=== PATIENT | male | born 1970 | race African-American/Black ===

== ENCOUNTER 2022-06-07 09:00 | Outpatient (REF) | payer OTHER, SELFPAY ==
[2022-06-07 09:26] LABS: COVID-19 Test Positive (Negative); IDNOW Serial# 16C4AD1C
== END 2022-06-07 09:01 | disposition home or self-care (01) ==
LOC: HO.LAB 09:00
PROVIDERS: Visit Provider Internal Medicine
DX: Z20.822 Contact with and (suspected) exposure to COVID-19 (principal)
CPT/HCPCS: 87635; C9803

== ENCOUNTER 2024-03-02 09:53 | Outpatient (AMB) | payer OTHER, SELFPAY ==
--- NOTE | 2024-03-02 10:17 | MHC.PC.OV ---
Vital Signs 03/02/24 10:18 Height 5 ft 9 in Weight 197 lb BMI 29.1 BP 148/90 H Blood Pressure Location Lt brachial Position Sitting Pulse 82 Pulse Source Pulse Oximeter Pulse Oximetry (%) 97 Oxygen Delivery Method Room Air Intake Visit Reasons: Ovi Client Care Consultant Required: No Accompanied by: Self / Same As Patient Allergies No Known Allergies [No Known Allergies*] Allergy (Unverified 03/02/24 10:50) Medication List - Last Reconciled 03/02/24 by Carlito Burgos MD ergocalciferol (vitamin D2) 1,250 mcg PO QWEEK triamcinolone acetonide 0.1% 1 appl topical BID-TID triamcinolone acetonide 0.5% 1 appl topical BID Tobacco use date assessed: 03/02/24 Dental Screening Dental Screen Date: 03/02/24 Did you have a dental visit in the last 12 months?: No Did you have a dental problem in the last 6 months where you did not have access to dental care?: Yes Was dental information given to patient?: Patient has dentist HPI CREW CALLER-Suraj HPI Details Patient comes in today to reestablish care - he was a former patient of [facility] but he has not been back or seen in over 15 years (last recorded appt was sometime in 2005) Admits that he has not really seen a doctor or kept up with medical appointments over the years Patient states that he currently feels okay He denies any headaches or dizziness Denies any chest pains, no SOB No nausea/vomiting, no abdominal pain - currently has no Rx but he takes his 's antacid pills (cannot remember name of Rx) when needed with relief No change in bowel habits noted He denies any acute urinary symptoms States that he's had problems with eczema and a recurrent rash, especially over his chest area, for years and they tend to get worse in the summer when he sweats He was prescribed some Triamcinolone (ointment and cream both) over the years by someone at his workplace ([employer]) and states that they help clear them up when they break out - would like to get his Rx refilled at this time Adds that he has recently been dealing with some recurrent low back pain - thinks he has a pinched nerve over his lower back [facility] Medical History (Updated 03/02/24 @ 11:32 by Carlito Burgos MD) Alcohol use Atopic dermatitis Smoker Overweight (BMI 25.0-29.9) Pure hypercholesterolemia Vitamin D deficiency H. pylori duodenitis Duodenitis determined by biopsy Surgical History (Updated 03/02/24 @ 10:54 by Carlito Burgos MD) History of esophagogastroduodenoscopy (EGD) Family History Other Family history non-contributory Social History [facility] Patient Tobacco Use Status: Current everyday Tobacco user Cigarette Packs Per Day: 0.5 Cigarettes Per Day: 10 e-Cigarette/Vaping Use: Never Used service: No Current occupational status: employed Current occupation: Loaded at [employer] Cognitive needs: No Hearing needs: No Vision needs: No Questionnaire PHQ-9 Over the last 2 weeks, how often have you been bothered by any of the following problems? 1. Little interest or pleasure in doing things: not at all 2. Feeling down, depressed, or hopeless: not at all 3. Trouble falling or staying asleep, or sleeping too much: not at all 4. Feeling tired or having little energy: not at all 5. Poor appetite or overeating: not at all 6. Feeling bad about yourself - or that you are a failure or have let yourself or your family down: not at all 7. Trouble concentrating on things, such as reading the newspaper or watching television: not at all 8. Moving or speaking so slowly that other people could have noticed. Or the opposite - being so fidgety or restless that you have been moving around a lot more than usual: not at all 9. Thoughts that you would be better off or of hurting yourself in some way: not at all Total score: 0 Depression Screening Interpretation: Negative Depression Screening Done: Yes 19640 - PHQ-9 Billing: Yes Source: Developed by Drs. Behzad Saleem, Chanel Tavera, Pantera Byrd and colleagues, with an educational rebecca from [employer]. Thrive Questionnaire Date Thrive assessed: 04/12/24 I am a: Patient What is your living situation today?: I have a steady place to live Within the past 12 months, did the food you bought not last and you didn't have the money to get more?: Never true Within the past 12 months, did you worry whether your food would run out before you got money to buy more?: Never true Do you have trouble paying for medicines?: No Do you have trouble getting transportation to medical appointments?: No Do you have trouble paying your heating and electricity bill?: No Do you have trouble taking care of your child, family member or friend?: No Do you have trouble with day-to-day activities such as bathing, preparing meals, shopping, managing finances, etc.?: No Are you currently unemployed and looking for a job?: No Are you interested in more education?: No Please select the resources that you would like help with: None Currently or been in a relationship where the following occur: no concerns reported THRIVE Score: 0 AUDIT C Alcohol Use Questionnaire (AUDIT-C) 1. How often do you have a drink containing alcohol?: 4 or more times a week 2. How many drinks containing alcohol do you have on a typical day when you are drinking?: 3 or 4 3. How often do you have six or more drinks on one occasion?: Daily or almost daily Total Score: 9 Score Reviewed/Action Taken: Yes (is advised to start cutting back on his alcohol intake) SIERRA-7 AMB Questionnaire SIERRA-7 Date SIERRA - 7 assessed: 03/02/24 Feeling nervous, anxious, or on edge: 0 = Not at all Not being able to stop or control worryin = Not at all Worrying too much about different things: 0 = Not at all Trouble relaxin = Not at all Being so restless that it is hard to sit still: 0 = Not at all Becoming easily annoyed or irritable: 0 = Not at all Feeling afraid as if something awful might happen: 0 = Not at all Total SIERRA-7 score (0-4 normal; 5-9 mild; 10-14 moderate; 15-21 severe): 0 Source: Developed by Drs. Behzad Saleem, Chanel Tavera, Pantera Byrd and colleagues, with an educational rebecca from [employer]. SIERRA-7 Assessment Billing SIERRA-7 Assessment Tool: SIERRA-7 Assessment 27118 Review of Systems Const Denies chills, Denies fatigue, Denies fever(s), Denies headache(s), Denies malaise and Denies weakness Eyes Denies blurry vision, Denies change in vision, Denies irritation and Denies itchy eyes ENT Denies dysphagia, Denies dizziness, Denies otalgia, Denies headache(s), Denies nasal congestion, Denies neck pain, Denies odynophagia and Denies sore throat Card Denies chest pain, Denies rapid heart rate, Denies irregular heart rhythm, Denies palpitations and Denies dyspnea Resp Denies chest congestion, Denies cough, Denies dyspnea and Denies wheezing GI Reports abdominal pain (occasional - (+) Hx of duodenitis), Denies bloating, Denies constipation, Denies dysphagia, Denies heartburn, Denies diarrhea, Denies nausea, Denies odynophagia and Denies vomiting Denies hematuria, Denies difficulty urinating, Denies dysuria, Denies urinary frequency and Denies urinary urgency Musc Reports back pain (over the lower back), Denies arthralgias, Denies joint swelling, Denies muscle weakness and Denies neck pain Skin/Breast Denies change in pigmentation, Denies lesions, Reports rash (recurrent - see HPI) and Denies unusual bruising Neuro Denies dizziness, Denies headache(s), Denies paresthesias and Denies weakness Endo Denies fatigue and Denies palpitations Aller/Immun Denies itchy eyes and Denies wheezing Physical exam (Primary Care) Vital Signs: Last Vital Signs Pulse 82 03/02/24 10:18 BP 148/90 H 03/02/24 10:18 Pulse Ox 97 03/02/24 10:18 Oxygen Delivery Method Room Air 03/02/24 10:18 BMI result Body Mass Index 29.1 Tobacco/Smoking Status: Tobacco use Status Tobacco use date assessed 03/02/24 03/02/24 10:27 Patient Tobacco Use Status Current everyday Tobacco 03/02/24 10:27 e-Cigarette/Vaping Use Never Used 03/02/24 10:27 PHQ-9: PHQ-9 Score PHQ-9: Total score 0 03/02/24 10:27 Depression Screening Interpretation: Negative Thrive Assessment: Date of Thrive Assessment Date Thrive assessed 03/02/24 03/02/24 10:22 Currently or been in a relationship where the following occur: no concerns reported Const General: no acute distress, alert and awake Orientation/consciousness: patient oriented x3 HENMT Head: Yes normocephalic and Yes atraumatic Ears: external ears normal, TM's normal bilaterally and EAC's normal General nose exam: No nasal discharge present Face and sinus: Yes normal facial exam and Yes sinuses nontender Teeth and gingiva: dentition normal Throat: Yes posterior oropharynx normal and Yes tonsils normal (no TP congestion) Eyes Eyelids: Yes eyelids normal Conjunctivae: conjunctivae normal Pupils: Equal, round and reactive pupils present EOM: EOMs intact bilaterally Neck Neck: Yes no lymphadenopathy and Yes supple Thyroid: Thyroid normal Resp Auscultation: clear to auscultation bilaterally, no rales and no wheezes Cardio Rate: regular rate Rhythm: regular rhythm Heart sounds: no murmurs GI Palpation (GI): Soft to palpation, nontender and No hepatosplenomegaly present Auscultation: normal bowel sounds General: Yes no CVA tenderness Back/Spine/Pelvis Back: no CVA tenderness Thoracic/Lumbar Spine: lumbar spinal tenderness Skin Other: (+) scattered multiple papular lesions, especially over his anterior chest wall Neuro General: patient oriented x3, moves all extremities, no focal motor deficits and CN's II-XI intact bilaterally Cranial nerves: Yes Equal, round and reactive pupils present Cognition (Neuro): normal cognition Gait exam (Neuro): Normal gait present Extrem General: Yes no clubbing, cyanosis or edema Assessment and Plan Assessment & Plan (1) Annual physical exam: Code(s): Z00.00 - Encounter for general adult medical examination without abnormal findings Plan: Check labs He has never had a screening colonoscopy done in the past and will refer him for his colon cancer screening (2) Atopic dermatitis: Code(s): L20.9 - Atopic dermatitis, unspecified Qualifiers: Atopic dermatitis type: unspecified Qualified Code(s): L20.9 - Atopic dermatitis, unspecified Plan: Will have him continue on his Triamcinolone Rx for now (both ointment and cream are refilled today) but have advised him that insurance will likely only cover one or the other so he may need to decide which one he prefers Will also refer him to dermatology for further evaluation and management (3) Pure hypercholesterolemia: Code(s): E78.00 - Pure hypercholesterolemia, unspecified Plan: Reinforced low cholesterol diet - his LDL cholesterol was high when they were last checked in 2005 but patient has not followed up since until today Will send him for repeat labs and to recheck his fasting lipids OMEGA (4) H. pylori duodenitis: Comment: treated with Abx Code(s): K29.80 - Duodenitis without bleeding; B96.81 - Helicobacter pylori [H. pylori] as the cause of diseases classified elsewhere Plan: Had EGD with Bx in [address] Cm and was reportedly treated for his H. pylori Patient states that he has been doing well lately although he would occasionally (once or twice a month) have to take one of his 's antacid Rx (cannot recall name of Rx) with relief of symptoms Is advised that as he will be referred back to Dr. Cm for his colon cancer screening, I will leave it up to Dr. Cm to determine if he should have a follow up EGD as well and if he does, she can likely schedule both to be done at the same time (5) Vitamin D deficiency: Code(s): E55.9 - Vitamin D deficiency, unspecified Plan: Continue Vitamin D2 52130 units once a week Will recheck his Vitamin D level for follow up (6) Low back pain: Code(s): M54.50 - Low back pain, unspecified Qualifiers: Chronicity: unspecified Back pain laterality: unspecified Sciatica presence: without sciatica Qualified Code(s): M54.50 - Low back pain, unspecified Plan: Will send him for lumbar spine x-rays for further evaluation (7) Alcohol use: Code(s): Z78.9 - Other specified health status Plan: He is counseled to try to cut back on his alcohol consumption Advised that if he needs help, we can refer him to the appropriate agencies and all he has to do is to let us know (8) Smoker: Code(s): F17.200 - Nicotine dependence, unspecified, uncomplicated Plan: Counseled on smoking cessation (9) Overweight (BMI 25.0-29.9): Code(s): E66.3 - Overweight Plan: Reinforced diet/exercise as tolerated/lose weight (10) Colon cancer screening: Code(s): Z12.11 - Encounter for screening for malignant neoplasm of colon Plan: Will refer him to Dr. Cm for screening colonoscopy Plan Follow up in 3 months Orders: Orders Complete Blood Count Auto Diff Today D64.9 - Anemia, unspecified, Z00.00 - Encounter for general adult medical examination without abnormal findings Comprehensive [place]. Panel Fast Today E78.00 - Pure hypercholesterolemia, unspecified, Z00.00 - Encounter for general adult medical examination without abnormal findings Lipid Panel Today E78.00 - Pure hypercholesterolemia, unspecified, Z00.00 - Encounter for general adult medical examination without abnormal findings UA CC w/rflx Micro + Cult Today R30.0 - Dysuria, Z00.00 - Encounter for general adult medical examination without abnormal findings Prostate Specific Antigen Scr Today Z00.00 - Encounter for general adult medical examination without abnormal findings Magnesium Today E83.42 - Hypomagnesemia, Z78.9 - Other specified health status Vitamin B1 Today Z78.9 - Other specified health status Vitamin B12 and Folate Today E53.8 - Deficiency of other specified B group vitamins, Z78.9 - Other specified health status TSH reflex Free T4 Today E78.00 - Pure hypercholesterolemia, unspecified, Z00.00 - Encounter for general adult medical examination without abnormal findings Vitamin D 25-OH Total Today E55.9 - Vitamin D deficiency, unspecified, Z00.00 - Encounter for general adult medical examination without abnormal findings XR lumbar spine 2-3V Today M54.50 - Low back pain, unspecified Referrals Gastroenterology Referral B96.81 - Helicobacter pylori [H. pylori] as the cause of diseases classified elsewhere, K29.80 - Duodenitis without bleeding, Z12.11 - Encounter for screening for malignant neoplasm of colon Dermatology Referral L20.9 - Atopic dermatitis, unspecified Medications: New triamcinolone acetonide 0.1% 1 appl topical BID-TID PRN 80 grams 3RF rash/eczema L20.9 - Atopic dermatitis, unspecified triamcinolone acetonide 0.5% 1 appl topical BID PRN 15 grams 3RF rash Coding Level of Care Code New Pt Prev Care 40-64y(30430) Diagnoses Annual physical exam Z00.00 Atopic dermatitis, unspecified type L20.9 Atopic dermatitis type: unspecified Pure hypercholesterolemia E78.00 H. pylori duodenitis K29.80; B96.81 Vitamin D deficiency E55.9 Low back pain without sciatica, unspecified back pain laterality, unspecified chronicity M54.50 Chronicity: unspecified Back pain laterality: unspecified Sciatica presence: without sciatica Alcohol use Z78.9 Smoker F17.200 Overweight (BMI 25.0-29.9) E66.3 Colon cancer screening Z12.11 Additional Codes SIERRA-7 Assessment Billing - SIERRA-7 Assessment Tool: SIERRA-7 Assessment 12160 ([id number])
[2024-03-02 10:18] VITALS: BP 148/90; PULSE 82; O2SAT 97; BMI 29.1
== END 2024-03-02 11:13 | disposition home or self-care (01) ==
PROVIDERS: PCP Internal Medicine; Visit Provider Internal Medicine
DX: Z00.00 Encounter for general adult medical examination without abnormal findings (principal); L20.9 Atopic dermatitis, unspecified; E78.00 Pure hypercholesterolemia, unspecified; K29.80 Duodenitis without bleeding; B96.81 Helicobacter pylori [H. pylori] as the cause of diseases classified elsewhere; E55.9 Vitamin D deficiency, unspecified; M54.50 Low back pain, unspecified; Z78.9 Other specified health status; F17.210 Nicotine dependence, cigarettes, uncomplicated; E66.3 Overweight; Z12.11 Encounter for screening for malignant neoplasm of colon
CPT/HCPCS: 99386